=== PATIENT | female | born 1995 | race Caucasian/White ===

== ENCOUNTER 2019-11-15 18:56 | Emergency (ER) | payer SELFPAY ==
--- NOTE | ~2019-11-15 | XR_ITS ---
XR forearm LT 2V 11/15/2019 19:20 INDICATION: Right arm pain after fall PROCEDURE: 2 views right forearm COMPARISON: No prior studies for comparison. FINDINGS: Fracture, dislocation or subluxation is not identified. The soft tissues appear within norm al limits. No foreign bodies are identified. IMPRESSION: 1: NO ACUTE BONE OR JOINT ABNORMALITY IDENTIFIED. Reviewed, dictated and finalized at location A.
--- NOTE | 2019-11-15 19:04 | ED.UPPEXIN ---
HPI - Extremity Injury (Upper) General Chief Complaint: Extremity Injury, Upper Stated Complaint: hurt L arm Time Seen by Provider: 11/15/19 19:04 Source: patient Mode of arrival: ambulatory Limitations: no limitations History of Present Illness HPI narrative: 24-year-old woman comes in today complaining of left forearm pain near her elbow after she fell off an end table. Patient states that she has been painting at home, start on the end table to pain and a spider fell on her causing her to fall to her left side in her left forearm struck the table as she fell. She denies rib pain, head or neck pain, loss of consciousness, numbness or tingling. She denies prior fractures. complaint: injury to: left and elbow Onset (ago): hour(s) (1) Other Extremity Injury: Left: forearm Other injuries: none Place: home Severity: moderate Relieving factors: immobilization Exacerbating factors: movement of extremity and other ( Palpation) Context: fall and direct blow Associated symptoms: heard/felt popping sensation Treatments prior to arrival: other ( splint) Related Data Allergies Allergy/AdvReac Type Severity Reaction Status Date / Time doxycycline Allergy Itching Verified 11/15/19 19:19 Review of Systems Constitutional: Constitutional: Denies chills, Denies fever(s) and Denies weakness Eyes: Eyes: Denies change in vision and Denies photophobia ENT: Denies dysphagia, Denies nasal congestion and Denies sore throat Cardiovascular: Cardiovascular: Denies chest pain and Denies radiating jaw, neck or arm pain Respiratory: Respiratory: Denies cough, Denies dyspnea and Denies wheezing Gastrointestinal: Gastrointestinal: Denies abdominal pain, Denies nausea and Denies vomiting Musculoskeletal: Musculoskeletal: Denies back pain, Denies arthralgias and Denies joint swelling Integumentary/Breasts: Skin/Breast: Denies pruritus, Denies erythema and Denies rash Neurologic: Denies vertigo, Denies dizziness and Denies syncope Endocrine: Endocrine: Denies polydipsia and Denies polyuria Hematologic/Lymphatic: Hematologic/Lymphatic: Denies easy bleeding and Denies easy bruising Allergic/Immunologic: Allergic/Immunologic: Denies tongue swelling and Denies wheezing PMFSH Surgical History Surgical History (Updated 11/15/19 @ 19:13 by Rainer Rincon MD) Hx of tubal ligation Social History Social History Smoking status: Current every day smoker Alcohol intake: current Alcohol use details: social Substance use: current Substance use type: marijuana Living arrangements: with family Exam Const: General: healthy appearing and alert Orientation/consciousness: patient oriented x3 Limitations: no limitations Other: moderate acute distress. HENMT: Head: normal to inspection Ears: external ears normal, TM's normal bilaterally and EAC's normal General nose exam: Normal nares present Mouth: Yes moist mucous membranes Throat: posterior oropharynx normal Eyes: Conjunctivae: conjunctivae normal Pupils: Equal, round and reactive pupils present EOM: EOMs intact bilaterally Neck: Neck: normal visual inspection and no lymphadenopathy Other: Nontender. Chest: Other: No tenderness to palpation left side of the posterior-lateral chest wall. Resp: Effort & Inspection: normal respiratory effort and not labored Auscultation: clear to auscultation bilaterally, no rales, no rhonchi and no wheezes Cardio: Rate: regular rate Rhythm: regular rhythm Heart sounds: no murmurs Skin: General skin exam: normal color, no jaundice and no pallor Rashes: no rashes Neuro: General: patient oriented x3, moves all extremities, no meningeal signs, no focal motor deficits and CN's II-XI intact bilaterally Speech: normal speech Extrem: General: normal to inspection and no clubbing, cyanosis or edema Other: Tenderness palpation of the ulna over the proximal 3rd. Patient has range
[2019-11-15 19:05] VITALS: BP 124/64; PULSE 101; RESP 16; TEMP 36.6; O2SAT 99
== END 2019-11-15 19:48 | disposition home or self-care (01) ==
PROVIDERS: Emergency Provider Emergency Medicine
DX: S59.912A Unspecified injury of left forearm, initial encounter (principal); W08.XXXA Fall from other furniture, initial encounter
CPT/HCPCS: 73090; 99283; A4565; A9270